=== PATIENT | female | born 1950 | race Caucasian/White ===

== ENCOUNTER 2020-02-25 07:26 | Outpatient (RCR) | payer MEDICARE, MEDICAID, SELFPAY ==
--- NOTE | 2020-02-25 09:43 | PTOPEVAL ---
INITIAL PHYSICAL THERAPY EVALUATION and PLAN OF CARE Thank you for referring Nai Rogers to [facility] Nai is scheduled to be seen for physical therapy? 1x/week for 6 weeks. Please review, sign, date and return this plan of care TATYANA. I agree with and certify that the following plan of care is medically necessary. 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 surgery Cardiovascular History Hx Cardiac Disorders No Significant History Respiratory History Hx Respiratory Disorders No Significant History Gastrointestinal History Hx Cholecystectomy Yes Hx Gastroesophageal Reflux Disease Yes Genitourinary History Hx Other Genitourinary Disorders Yes: incontinence, bladder prolapse Musculoskeletal History Hx Arthritis Yes Hx Back Pain Yes Hx Other Musculoskeletal Disorders Yes: L knee pain Hematological History Hx Anemia Yes Endocrine History Hx Endocrine Disorders No Significant History Reproductive History Hx Tubal Ligation Yes Psychosocial History Hx Anxiety Yes Hx Depression Yes Evaluation Information Problem Diagnosis pelvic floor dysfunction, urinary incontinence, prolapsed bladder Onset May 2019 Subjective Information Fell in bathtub - hit L knee Query Text:As Reported By Patient/ and shoulder - after this Family noticed more with urinary leakage When goes to stand - feels increased amount of urinary leakage - especially when wakes up during night to go to the bathroom. Prior Level of Function Activity Level (Last 3 Months) Hand Dominance Right Medications Home Meds (Include: OTC, RX, Vitamins, omeprazole, Linzess, Vitmain Herbals, Dose, Route,and Frequency) D3, OTC Iron, Women's Multiple Query Text:Home Med Entries Will No Vitamin, Darosate sodium, Longer Recall From Past Visits. Home dolcolate - prn, tumeric, Meds Must Be Re-entered With Each Visit. jefferson, med for bone density Home Setting Home Type
--- NOTE | 2020-03-08 09:33 | PCPTNOTE ---
Pt no show for today's appt. Called Nai to remind her of appointment. Pt stated she had called last week and told table tender sludge, she was out of town and would call us. when she was back in town.
--- NOTE | 2020-03-15 16:16 | PCPTNOTE ---
Patient did not show up for scheduled appointment this date. Previous no show note written stated that pt will call to reschedule when she returns from being out of town. This has not happened. This is her 3rd n/s -she is being removed from the schedule.
--- NOTE | 2020-03-29 16:14 | PCPTNOTE ---
PHYSICAL THERAPY DISCHARGE SUMMARY Admitting Provider: Attending Provider: Adan Oates, PA Patient:Nai Rogers Date of :1950 Nai has not returned for any further treatments since 02/25/2020, therefore she will be discharged at this time. Nai?s initial visit was on 02/25/2020 08:00 and that was the only appointment she attended. The goals have been not met. Thank you for referring Nai to [facility]. Please review, sign, date and return this discharge summary TATYANA. I have been updated about Nai's current status and I agree with discharge from the above service at this time. Referring Physician Date
== END 2020-03-30 10:45 | disposition home or self-care (01) ==
LOC: ANHPT 07:26
PROVIDERS: PCP Physician Assistant; Visit Provider Physician Assistant
DX: N81.89 Other female genital prolapse (principal)
CPT/HCPCS: 97110; 97161

== ENCOUNTER 2022-12-07 11:07 | Outpatient (CLI) | payer MEDICARE, MEDICAID, SELFPAY ==
--- NOTE | ~2022-12-07 | US_ITS ---
EXAMINATION:US venous doppler LE BI INDICATION:Bilateral leg pain TECHNIQUE: Multiple grayscale, color flow and Doppler images of the right and left lower extremity de ep venous systems were obtained and reviewed. COMPARISON: FINDINGS: The common femoral, superficial femoral and popliteal veins demonstrate normal respiratory variation, augmentation and compressibility. The posterior tibial, peroneal and anterior tibial veins are not visualized due to edema. IMPRESSION: 1: No lower extremity deep venous thrombosis in the common femoral, femoral and popliteal veins. Milian ited examination due to edema. Reviewed, dictated and finalized at location B. IMPRESSION: 1: No lower extremity deep venous thrombosis in the common femoral, femoral an d popliteal veins. Limited examination due to edema.
== END 2022-12-07 11:08 | disposition home or self-care (01) ==
PROVIDERS: PCP Family Medicine; Visit Provider Physician Assistant
DX: M79.661 Pain in right lower leg (principal)
CPT/HCPCS: 93970

== ENCOUNTER 2024-12-25 16:56 | Emergency (ER) | payer MEDICARE, MEDICAID, SELFPAY ==
--- NOTE | ~2024-12-25 | CT_ITS ---
CTA chest PE protocol HISTORY:shortness of breath, positive D dimer . COMPARISON: None. TECHNIQUE: Following the noncontrasted assistant office manager, axial images of the thorax were obtained following infusion of 100 cc of Isovue 370. Post-processing on an independent workstation was performed to reconstruct MIP images for evaluation of the thoracic vasculature. FINDINGS: There is no pulmonary embolism, aortic dissection, thoracic aneurysm or pericardial fluid. Mild groundglass opacities scattered bilaterally. No focal consolidation. No pleural effusion or pneumothorax is noted. There is no axillary, mediastinal or hilar adenopathy. Hiatal hernia with herniation of the entire stomach above the diaphragm. Review of bone windows demonstrates no osteoblastic or lytic lesions. IMPRESSION: There is no pulmonary embolism, aortic dissection, pericardial fluid or thoracic aneurysm. Large hiatal hernia. Mild groundglass opacities bilaterally. All CT scans at this facility are performed using low dose modulation techniques as appropriate to perform exam including the following: automated exposure control; use of iterative reconstruction technique; adjustment of the mA and/or kV according to patient size (this includes techniques or standardized protocols for targeted exams where dose is matched to indication/reason for exam). Reviewed, dictated and finalized at location S. E MECHANIC IMPRESSION: There is no pulmonary embolism, aortic dissection, pericardial fluid or thoraci c aneurysm. Large hiatal hernia. Mild groundglass opacities bilaterally. All CT scans at this facility are performed using low dose modulation techniqu es as appropriate to perform exam including the following: automated exposure c ontrol; use of iterative reconstruction technique; adjustment of the mA and/or kV according to patient size (this includes techniques or standardized protocol s for targeted exams where dose is matched to indication/reason for exam).
--- NOTE | ~2024-12-25 | XR_ITS ---
EXAMINATION: XR chest 2V, 12/25/2024 17:50 FAUCETS ASSEMBLER HISTORY: SOB COMPARISON: No comparisons available. Technique: 2 views obtained. Findings: Moderate pulmonary venous congestion. No pneumothorax. Severe cardiomegaly, pericardial effusion is not excluded. Large hiatal hernia. Bony thorax no acute abnormality. Impression: CHF. Pericardial effusion not excluded. Echocardiogram suggested Reviewed, dictated and finalized at location P. ETS ASSEMBLER Impression: CHF. Pericardial effusion not excluded. Echocardiogram suggested
[2024-12-25 16:59] VITALS: BP 137/57; PULSE 87; RESP 18; TEMP 36.6; O2SAT 94
--- NOTE | 2024-12-25 17:04 | ECG_ITS ---
Test Date: 2024-12-25 17:41:10 Measurements Intervals Beatty Rate: 88 P: 75 IL: 188 QRS: -21 QRSD: 86 T: 44 QT: 404 QTc: 490 Interpretive Statements SINUS RHYTHM WITH OCCASIONAL SUPRAVENTRICULAR PREMATURE COMPLEXES LEFTWARD AXIS LOW QRS VOLTAGE IN PRECORDIAL LEADS PATTERN CONSISTENT WITH PULMONARY DISEASE Electronically Signed On 12-26-2024 10:50:51 [employer] by Timmy Gamez D.O
[2024-12-25 17:40] LABS: Hematocrit 35.9 % (37.0-47.0); Hemoglobin 10.1 g/dL (12.0-15.0); Immature Granulocyte Percent A 0.1 % (0-0.5); Lymphocytes Absolute Auto 1.65 K/mm3 (0.9-3.2); Mean Corpuscular HGB Conc 28.1 g/dl (32-36); Mean Corpuscular Hemoglobin 21.9 pg (26-34); Mean Corpuscular Volume 77.7 fl (80-100); Nucleated Red Blood Cells Absolute Auto 0.000 K/mm3 (0.0-0.012); Nucleated Red Blood Cells Perc 0.0 % (0.0-0.2); Platelet Count Result 202 k/mm3 (150-375); Red Blood Count 4.62 M/mm3 (4.2-5.4); White Blood Count 7.3 K/mm3 (4.5-10.0)
[2024-12-25 17:44] LABS: Alanine Aminotransferase 21 U/L (6-35); Albumin Level 4.1 g/dL (3.5-5.1); Alkaline Phosphatase 116 U/L (38-126); Anion Gap 7 mmol/L (4-12); Aspartate Amino Transferase 29 U/L (14-36); Bilirubin,Total 0.5 mg/dL (0.2-1.3); Blood Urea Nitrogen 21 mg/dL (7-17); Calcium 8.7 mg/dL (8.4-10.2); Carbon Dioxide 26 mmol/L (22-30); Chloride 106 mmol/L (98-107); Estimated CRCL calculation 65 ml/min; Estimated Glomerular Filt Rate > 60; Glucose 100 mg/dL (65-110); Potassium 4.0 mmol/L (3.4-5.0); Sodium 139 mmol/L (137-145); Total Protein 7.6 g/dL (6.3-8.2)
[2024-12-25 18:04] LABS: Band Neutrophils Percent 0 % (0-6); Schistocytes None Seen
[2024-12-25 18:05] LABS: Anisocytosis 2+; Hypochromasia 1+
[2024-12-25 18:21] VITALS: BP 129/71; PULSE 85; RESP 20; O2SAT 98
--- NOTE | 2024-12-25 19:12 | ED.GENADULT ---
HPI - General Adult General Chief complaint: Recheck/Abnormal Lab/Rx Stated complaint: elevated DDimer Time Seen by Provider: 12/25/24 18:53 History of Present Illness HPI narrative: This is a 75-year-old female presenting with shortness of breath x1 month. Patient is being worked up by her primary care physician Ken. A D-dimer was ordered on outpatient basis was elevated chest was sent to the ED for further evaluation. Patient says she has been having shortness breath for the last month. She has also noticed some mild lower extremity edema. She denies fevers chills chest pain productive cough, orthopnea. Related Data Home Medications ?Medication ?Instructions ?Recorded ?Confirmed ?Last Taken ?Type ibuprofen 800 mg tablet 800 mg PO Q6H 05/24/22 05/24/22 Unknown History linaclotide 72 mcg capsule 72 mcg PO DAILY 05/24/22 05/24/22 Unknown History (Linzess) magnesium 200 mg tablet 200 mg PO DAILY 05/24/22 05/24/22 Unknown History multivitamin (Daily Multi-Vitamin 1 tablet PO DAILY 05/24/22 05/24/22 Unknown History tablet) omeprazole 40 mg capsule,delayed 40 mg PO .prn 05/24/22 05/24/22 Unknown History release potassium chloride 10 mEq 10 meq PO DAILY 05/24/22 05/24/22 Unknown History tablet,extended release zinc acetate 25 mg (zinc) capsule 25 mg PO DAILY 05/24/22 05/24/22 Unknown History Allergies Allergy/AdvReac Type Severity Reaction Status Date / Time Penicillins Allergy Mild Rash Verified 12/25/24 17:01 quinine Allergy Mild Rash Verified 12/25/24 17:01 [facility] Past Medical History Medical History Epigastric discomfort Gas bloat syndrome Constipation Obesity GERD (gastroesophageal reflux disease) Vitamin D deficiency HLD (hyperlipidemia) Surgical History Surgical History History of tonsillectomy Hx of cholecystectomy Social History Social History Smoking status: Never smoker Exam Narrative: APPEARANCE: No apparent distress. Head: atraumatic. EYES: EOMI, NOSE: Atraumatic NECK: Trachea midline RESPIRATORY: No increased rate of breathing , clear to auscultation, speaking in full sentences CARDIOVASCULAR: RRR, mild edema lower extremities ABDOMINAL: Non-distended MUSCULOSKELETAl: No obvious deformities NEURO: Alert. Moving 4/4 extremities SKIN:: Warm, dry. Normal color PSYCHIATRIC: Normal affect Course Vital Signs Vital signs: Vital Signs Temperature 97.9 F 12/25/24 16:59 Pulse Rate 87 12/25/24 16:59 Respiratory Rate 18 12/25/24 16:59 Blood Pressure 137/57 L 12/25/24 16:59 Pulse Oximetry 94 12/25/24 16:59 Oxygen Delivery Room Air 12/25/24 16:59 Temperature 97.9 F 12/25/24 16:59 Pulse Rate 85 12/25/24 18:21 Respiratory Rate 20 12/25/24 18:21 Blood Pressure 129/71 12/25/24 18:21 Pulse Oximetry 98 12/25/24 18:21 Oxygen Delivery Room Air 12/25/24 16:59 Medical Decision Making MDM Narrative Medical decision making narrative: -Course: 74-year-old female presenting for 1 month shortness of breath due to an elevated D-dimer. CTA was ordered which did not reveal pulmonary embolism. It showed mild ground-glass opacities month as well as a large hiatal hernia. the CT was read as CHF with pulmonary vascular congestion. Patient does not have any respiratory distress on my exam. Her lungs are clear. She is not requiring supplemental oxygen. She is saturating well on room air and is speaking in full sentences. Patient was able to pass an ambulatory pulse ox. she has been scheduled to get an outpatient echocardiogram. I discussed admission versus discharge the patient is adamantly opposed to being admitted. She would like to schedule the echocardiogram on an outpatient basis which I think is reasonable. Patient will be discharged to follow-up with her primary care physician. Given strict return precautions. -DDX includes but is not limited to: CHF, PE, pneumonia, acs, viral syndrome -Co-morbidities complicating care: obesity, GERD -Independent interpretation of studies: labs and imaging reviewed Independent EKG interpretation: Rhythm [sinus], Rate [88], [place] -[normal], [place] -[normal], QRS [narrow], QTC [490], T waves -[negative for concerning inversions], ST Segments - [Negative for concerning elevations] Final interpretations: [Normal Sinus Rhythm] Vital Signs Vital Signs: Vital Signs Temperature 97.9 F 12/25/24 16:59 Pulse Rate 87 12/25/24 16:59 Respiratory Rate 18 12/25/24 16:59 Blood Pressure 137/57 L 12/25/24 16:59 Pulse Oximetry 94 12/25/24 16:59 Oxygen Delivery Room Air 12/25/24 16:59 Temperature 97.9 F 12/25/24 16:59 Pulse Rate 85 12/25/24 18:21 Respiratory Rate 20 12/25/24 18:21 Blood Pressure 129/71 12/25/24 18:21 Pulse Oximetry 98 12/25/24 18:21 Oxygen Delivery Room Air 12/25/24 16:59 Lab Data 12/25/24 17:23 12/25/24 17:23 Labs: Lab Results 12/25/24 Range/Units 17:23 WBC 7.3 (4.5-10.0) K/mm3 RBC 4.62 (4.2-5.4) M/mm3 Hgb 10.1 L (12.0-15.0) g/dL Hct 35.9 L (37.0-47.0) % MCV 77.7 L (80-100) fl MCH 21.9 L (26-34) pg MCHC 28.1 L (32-36) g/dl RDW 19.4 H (11.5-14.5) % Plt Count 202 (150-375) k/mm3 MPV 10.1 (7.4-10.4) fl Immature Gran % (Auto) 0.1 (0-0.5) % Neut % (Auto) 65.4 (45.5-73.1) % Lymph % (Auto) 22.7 (18.3-44.2) % [place] % (Auto) 8.8 H (2.6-8.5) % Eos % (Auto) 2.3 (0-4.4) % Baso % (Auto) 0.7 (0.2-1.2) % Lymph # (Auto) 1.65 (0.9-3.2) K/mm3 [place] # (Auto) 0.6 (0.1-0.6) K/mm3 Eos # (Auto) 0.2 (0-0.3) K/mm3 Baso # (Auto) 0.1 (0.0-0.1) K/mm3 Abs Immat Gran (auto) 0.01 (0.00-0.031) K/mm3 Absolute Neuts (auto) 4.7 (1.3-6.7) K/mm3 Absolute Nucleated RBC 0.000 (0.0-0.012) K/mm3 Band Neutrophils % 0 (0-6) % Nucleated RBC % 0.0 (0.0-0.2) % Platelet Estimate Adequate (Adequate) Hypochromasia 1+ Anisocytosis 2+ Schistocytes None seen Sodium 139 (137-145) mmol/L Potassium 4.0 (3.4-5.0) mmol/L Chloride 106 (98-107) mmol/L Carbon Dioxide 26 (22-30) mmol/L Anion Gap 7 (4-12) mmol/L BUN 21 H (7-17) mg/dL Creatinine 0.80 (0.7-1.0) mg/dL Estim Creat Clear Calc 65 ml/min Estimated GFR > 60 (59 - ) Glucose 100 (65-110) mg/dL Calcium 8.7 (8.4-10.2) mg/dL Total Bilirubin 0.5 (0.2-1.3) mg/dL AST 29 (14-36) U/L ALT 21 (6-35) U/L Alkaline Phosphatase 116 (38-126) U/L Total Protein 7.6 (6.3-8.2) g/dL Albumin 4.1 (3.5-5.1) g/dL Discharge Plan Discharge Clinical Impression: Acute dyspnea Patient Disposition: Home Condition: Stable Instructions: Antibiotic Form, Dyspnea (ED) Additional Instructions: You were seen in the emergency department due to an elevated D-dimer. Your CTA did not show a pulmonary embolism. It is important that she get the echocardiogram that your primary care physician has ordered. If your breathing is getting worse or you develop any new or worsening symptoms please return to the ED for re-evaluation. Patient Language: Lebanese Prescriptions: No Action Linzess 72 mcg capsule 72 mcg PO DAILY ibuprofen 800 mg tablet 800 mg PO Q6H zinc acetate 25 mg (zinc) capsule 25 mg PO DAILY potassium chloride 10 mEq tablet extended release 10 meq PO DAILY magnesium 200 mg tablet 200 mg PO DAILY multivitamin [Daily Multi-Vitamin] Tablet 1 tablet PO DAILY omeprazole 40 mg capsule,delayed release(DR/EC) 40 mg PO .prn Follow-up/Referrals: Roosevelt,Gillian Andrews MD [Primary Care Provider, Unknown] - 3 Days Referral Note: CTA negative for PE.
[2024-12-25 19:26] VITALS: PULSE 103; O2SAT 95
[2024-12-25 20:20] LABS: NT Pro B Type Natriuretic Pept 248 pg/mL (19.9-100)
--- OUTSIDE RECORDS SUMMARY | 2024-12-25 20:20 | XMS_ITS | Encounter Summary ---
Author Organization [facility] Address [address] [place] [address] Care Team Providers Care Joint Maker Machine Name Role Phone Chapo Estevez MD Unavailable [phone] Desmond Osei MD Unavailable [phone] Adan Oates Primary Care Provider + Gillian Albert MD Primary Care Provider [phone] Encounter Details Date Type Department Care Team (Late st Contact Info) Description 10/28/2024 Results Follow-Up [facility] - [employer] [address] [place] [address] Teri Moore MD [address] [facility] [address] [place] [address] Social History Tobacco Use Types Packs/Day Years Used Date Smoking Tobacco: Never Smokeless Tobacco: Never Alcohol Use Standard Drinks/Week Comments Not Currently 0 (1 standard drink = 0.6 oz pur e alcohol) PHQ-2 Answer Date Recorded Patient Health Questionnaire-2 Score 0 10/23/2024 Comments No Sex and Gender Information Value Date Recorded Sex Assigned at Not on file Legal Sex Female 11:21 AM CDT Gender Identity Female 11/26/2016 9:06 AM CDT Sexual Orientation Not on file Occupation Industry Job Start Date Job End Date DISABLED-RETIRED Not on file Not on file Not on file documented as of this encounter Plan of Treatment Upcoming Encounters Date Type Department Care Team (Late st Contact Info) Description 02/22/2025 11:45 AM ITEM PROCESSOR Office Visit [facility] - [employer] [address] [place] [address] Teri Moore MD [address] [place] [address] documented as of this encounter Visit Diagnoses Not on filedocumented in this encounter Care Teams Joint Maker Machine Relationship Specialty Start Date End Date Adan Oates PA [address] [place] [id number] PCP - General Physician Health Advisor 06/29/24 11/25/24 Gillian Albert MD [address] [place] [phone] PCP - General Emergency Medicine 11/26/24 Chapo Estevez MD Referring Physician Neurological Surgery 10/11/14 Desmond Osei MD Radiation Oncologist Radiation Oncology 10/11/14 documented as of this encounter
--- OUTSIDE RECORDS SUMMARY | 2024-12-25 20:20 | XMS_ITS | Clinical Summary ---
Author Organization [facility] Address [address] [facility] [place] [address] Care Team Providers Care Wrapping Machine Tender Name Role Phone Chapo Estevez MD Unavailable [phone] Desmond Osei MD Unavailable [phone] Gillian Albert MD Primary Care Provider [phone] Source Comments [facility],non-owned Affiliates and Associated Physician Practices is amultiple site organization consisting of ambulatory clinics and hospital sitesin [place], [place], [place] and [place]. This disclosure is being madepursuant to the Care Everywhere program and may not contain all information available regarding this patient. Last updated 17.[facility] Allergies Active Allergy Reactions Criticality Noted Date Comments Penicillins Urticaria,Itching 08/19/2013 Quinine Hematologic High 08/19/2013 bleeding Medications * Be aware that medications may not be up to date on this document. Alwaysverify current medications with the patient. Multiple Vitamins-Minera ls (MULTIVITAMIN & MINERAL PO) Take 1 Tab by mouth once daily Active Ferrous Sulfate (IRON) 325 (65 FE) MG Take by mouth once daily Active ibuprofen (MOTRIN) 800 MG tablet Take 800 mg by mouth every 8 hours as needed for Pain Active linaCLOtide (LINZESS) 72 MCG capsule Take 72 mcg by mouth daily before breakfast Take on an empty stomach at least 30 minutes prior to first meal of the day. Active omeprazole (PriLOSEC) 40 MG capsule TAKE 1 CAPSULE BY MOUTH EVERY DAY BEFORE A MEAL Active gabapentin (Neurontin) 300 MG capsule Take 2 (two) capsules by mouth Active cyclobenzaprine (Flexeril) 10 MG tablet Take 1 (one) tablet by mouth 5 Active diclofenac sodium EC (Voltaren) 75 MG tablet Take 1 (one) tablet by mouth 2 times daily 5 Active Linzess 145 MCG capsule Take 1 (one) capsule by mouth once daily Active FLUoxetine (PROzac) 20 MG capsule TAKE 1 CAPSULE BY MOUTH EVERY DAY IN THE MORNING 5 Active Magnesium Oxide 420 MG Take by mouth once daily Active Zinc Gluconate 100 MG Take by mouth once daily Active Multiple Vitamin (Multi-Vitamin) TABS Take by mouth once daily Active alendronate (Fosamax) 70 MG tablet TAKE 1 TABLET BY MOUTH ONCE PER WEEK IN THE MORNING 5 Active HYDROcodone-david taminophen (Transfer) 5-325 MG tablet Take 1 (one) tablet by mouth 2 times daily as needed Active potassium chloride ER 10 MEQ tablet TAKE 1 TABLET BY MOUTH EVERY DAY FOR 10 DAYS Active celecoxib (CeleBREX) 200 MG capsule Take 1 (one) capsule by mouth once daily Active solifenacin (VESIcare) 10 MG tablet Take 1 (one) tablet by mouth once daily Active fluconazole (Diflucan) 150 MG tablet Take 1 (one) tablet by mouth every 3 days 2 tablet Active estradiol (Estrace) 0.1 MG/GM vaginal cream Insert 1g into the vagina nightly for 1 week. Then insert 1g into the vagina two times a week thereafter. 42.5 g 3 5 Active baclofen (Lioresal) 10 MG tablet TAKE 1 TAB BY MOUTH 3 TIMES PER DAY ONLY NEEDED. SEPARATE FROM HYDROCODONE BY AT LEAST 2 HOURS Active predniSONE (Deltasone) 20 MG tablet PLEASE SEE ATTACHED FOR DETAILED DIRECTIONS Active Active Problems Problem Noted Date Diagnosed Date Abnormal EKG 06/22/2024 Daytime hypersomnia 06/22/2024 Shortness of breath 06/22/2024 Encounter for screening for cardiovascular disor ders 06/22/2024 Edema of lower extremity 06/04/2024 Hesitancy 05/25/2024 Microscopic hematuria 05/25/2024 Prolapse of female pelvic organs 05/25/2024 Stress incontinence, female 05/25/2024 Urge incontinence 05/25/2024 Lesion of skin of face 03/08/2024 Stiff neck 03/08/2024 Herniated lumbar intervertebral disc 05/28/2023 Gastroesophageal reflux disease 02/20/2023 Low back pain 02/20/2023 Pain of right hip joint 02/20/2023 Spasm 01/22/2023 Depressive disorder 12/13/2022 Muscle strain of right shoulder 12/13/2022 Bilateral calf pain 10/25/2022 Cellulitis of lower limb 10/19/2022 Osteoporosis 09/14/2022 Arthralgia of right knee 09/04/2022 Morbid obesity 09/04/2022 Osteoarthritis of both knees 09/04/2022 Chronic vertigo 08/23/2022 Other specified personal ris k factors, not elsewhere classified 08/23/2022 Tear of meniscus of knee 08/15/2022 Overview (05/25/2024): Sees Vlad Guajardo , heprescribed physical therapy and Diclofenac tabs po. Intracranial meningioma 07/19/2022 Nausea and vomiting 07/04/2022 Cardiomegaly 06/14/2022 Chronic idiopathic constipation 06/14/2022 Encounter for other screenin g for malignant neoplasm of breast 06/14/2022 Unable to lose weight 06/14/2022 Anemia 07/22/2019 Arthritis 07/22/2019 Neoplasm of brain 07/22/2019 Osteoarthritis of knee 07/22/2019 Urinary incontinence 07/22/2019 At high risk for infection 07/08/2019 Fibromyalgia 07/08/2019 Post-traumatic osteoarthritis of both knees 06/12 Leg edema 07/28/2018 Family history of CVA 07/15/2017 Obesity 07/15/2017 Shoulder pain, left 07/15/2017 Urinary urgency 11/27/2016 Increased frequency of urination 11/27/2016 Myofascial pain 11/27/2016 Uterine prolapse 11/20/2016 Chronic venous hypertension (idiopathic) without complications of bilateral lower extremity 11/01/2015 Iron deficiency anemia 05/19/2015 Benign neoplasm of meninges, unspecified 016 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 Acute embolism and thrombosi s of unspecified deep veins of left lower extremity 07/12/2013 Resolved Problems Problem Noted Date Diagnosed Date Resolved Date Impacted cerumen 11/28/2023 06/08/2024 Sinusitis 11/28/2023 06/22/2024 Encounters Date Type Department Care Team Description 11/26/2024 Telephone [facility] - LABOR SUPERVISOR [address] [place] [address] Teri Moore MD Question 11/10/2024 Telephone [facility] - LABOR SUPERVISOR [address] [place] [address] Teri Moore MD Results 10/28/2024 Results Follow-Up [facility] - LABOR SUPERVISOR [address] [place] [address] Teri Moore MD 10/23/2024 11:45 AM CDT Office Visit [facility] - LABOR SUPERVISOR [address] [place] [address] Teri Moore MD Cystocele, midline (Primary Dx); Uterovaginal prolapse, complete; Rectocele; Morbid obesity with BMI of 50.0-59.9, adult (HCC); Mixed stress and urge urinary incontinence; Vaginal atrophy; Constipation, unspecified constipation type; Vulvar irritation 10/23/2024 Travel from Last 3 Months Family History Medical History Relation Name Comments CAD (Coronary Artery Disease) Father at age 74 COPD - Chronic Obstructive Pulmonary Disease Father Heart Failure Father Cancer - Ovarian Maternal Aunt Depression Mother Parkinson's Disease Mother at age 76 Thyroid Disease Mother Relation Name Status Comments Father Maternal Aunt Alive Mother Social History Tobacco Use Types Packs/Day Years Used Date Smoking Tobacco: Never Smokeless Tobacco: Never Tobacco Cessation:Counseling Given: Not Answered Alcohol Use Standard Drinks/Week Comments Not Currently [...] file Not on file Not on file Last Filed Vital Signs Vital Sign Reading Time Taken Comments Blood Pressure 120/80 10/23/2024 11:25 AM CDT Pulse 77 11/28/2016 10:16 AM CDT Temperature 36.4 C (97.5 F) 10/23/2024 11:25 AM CDT Respiratory Rate 13 11/28/2016 10:1 6 AM CDT Oxygen Saturation 98% 11/28/2016 10: 16 AM CDT Inhaled Oxygen Concentration - - Weight 118.9 kg (262 lb 3.2 oz) 025 11:25 AM CDT Height 152.4 cm (5') 10/23/2024 11:25 AM CDT Body Mass Index 51.21 10/23/2024 11:25 AM CDT Plan of Treatment Upcoming Encounters Date Type Department Care Team (Late st Contact Info) Description 02/22/2025 11:45 AM TOOL DESIGN DRAFTER Office Visit [facility] - LABOR SUPERVISOR [address] [place] [address] Teri Moore MD [address] [place] [address] Health Maintenance Due Date Last Done Comments BONE DENSITY TESTING 1950 COLON MONITORING 1950 COLONOSCOPY - COLON CA SCREENING 1950 CT COLONOGRAPHY - COLON CA SCREENING 1950 FIT - COLON CA SCREENING 1950 FLEX SIG - COLON CA SCREENING 1950 LIPID TESTING 1950 MAMMOGRAM 1950 HEPATITIS C SCREENING 02/01/1968 DTAP/TDAP/TD VACCINES (1 - Tdap) 1969 PNEUMOCOCCAL VACCINE 50+ (1 of 1 - PCV) 02/06/2000 Respiratory Syncytial Virus (RSV) Vaccine Pt: or over 60 yrs (1 - Risk 50-74 years 1-dose series) 02/06/2000 ZOSTER VACCINE (1 of 2) 02/06/2000 MEDICARE AWV CALENDAR YEAR 2024 COVID-19 VACCINE (1 - 2024-2 6 season) 2024 INFLUENZA VACCINE (#1) 2024 COLOGUARD (AGES 45-75) - COL ON CA SCREENING 11/07/2024 11/07/2021 Colorectal Cancer Screening 11/07/2024 DEPRESSION SCREENING Completed 05/25/2024 HEPATITIS B VACCINE Aged Out No longe r eligible based on patient's age to complete this topic HIB VACCINE Aged Out No longer eligi ble based on patient's age to complete this topic HPV VACCINE Aged Out No longer eligi ble based on patient's age to complete this topic MENINGOCOCCAL (Group B) VACC INE SHARED DECISION-MAKING Aged Out No longer eligibl e based on patient's age to complete this topic MENINGOCOCCAL GROUPS A/C/Y/W VACCINE Aged Out No longer eligible b ased on patient's age to complete this topic Procedures Procedure Name Priority Date/Time Associated Diagnosis Comments CULTURE YEAST Routine 10/23/2024 12:57 PM CDT Vulvar irritation from Last 3 Months Results * CULTURE YEAST (10/23/2024 12:57 PM CDT) Culture Yeast with ID [facility] Comment: CULTURE, YEAST, W/IDENTIFICATION Micro Number: [id number] Test Status: Final Specimen Source: Vulva Specimen Quality: Adequate Result: No yeast isolated Test Performed at: [facility] [address] CELY ANDRADE MD Microbiology ENTIRE VULVA / Unknown 10/23/2024 12:57 PM CDT 10/24/2024 2:56 AM CDT us Teri Moore MD LAB - MICROBIOLOGY ORDERABL ES Final Result [address] [address] from Last 3 Months Insurance [facility] MANAGED MEDICARE ADV Care Teams Wrapping Machine Tender Relationship Specialty Start Date End Date Gillian Albert MD [address] [place] [id number] PCP - General Emergency Medicine 11/26/24 Chapo Estevez MD Referring Physician Neurological Surgery 10/11/14 Desmond Osei MD Radiation Oncologist Radiation Oncology 10/11/14
--- OUTSIDE RECORDS SUMMARY | 2024-12-25 20:21 | XMS_ITS | Encounter Summary ---
Author Organization [facility] Address [address] [place] [address] Phone Care Team Providers Care Billboard Poster Name Role Phone Unknown, Notinfgalina Primary Care Provider Unavail able Delia Francis MD Primary Care Provider [phone] Adan Oates Unavailable [phone] Encounter Details Date Type Department Care Team (Latest Contact Info) Description 09/28/2016 Orders Only [facility] CONVERSION Scanning, Provider Social History Tobacco Use Types Packs/Day Years Used Date Smoking Tobacco: Never Assessed Comments Unknown Sex and Gender Information Value Date Recorded Sex Assigned at Not on file Legal Sex Female 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 Gender Identity Not on file Sexual Orientation Not on file documented as of this encounter Plan of Treatment Not on file documented as of this encounter Procedures Procedure Name Priority Date/Time Associated Diagnosis Comments VASCULAR LABORATORY REPORT 09/28/2016 7:28 AM CDT documented in this encounter Results * VASCULAR LABORATORY REPORT (09/28/2016 7:28 AM CDT) Anatomical Region Laterality Modality Ultrasound us Provider Scanning CV VASCULAR PROCEDURES Final R esult documented in this encounter Visit Diagnoses Not on filedocumented in this encounter Care Teams Billboard Poster Relationship Specialty Start Date End Date Unknown, Danny PCP - General 11/27/16 11/28/16 Delia Francis MD [address] [address] PCP - General 11/29/16 Adan Oates PA [address] [place] [address] Physician Clother In Internal Medicine 04/15/19 documented as of this encounter
--- OUTSIDE RECORDS SUMMARY | 2024-12-25 20:21 | XMS_ITS | Clinical Summary ---
Author Organization [id number] Address [address] [place] [address] Care Team Providers Care Deputy Brand Inspector Name Role Phone Delia Francis MD Primary Care Provider Adan Oates Unavailable [phone] Allergies Active Allergy Reactions Criticality Noted Date Comments Penicillins Itching,Urticaria Medium 08/19/2013 Quinine Other (See comments) High 08/19/2013 bleeding Medications Linzess 72 mcg capsule 05/11/2019 Active ergocalciferol (VITAMIN D) 50,000 unit capsule Take 50,000 Units by mouth once a week Active iron 18 mg tablet Take by mouth Active multivitamin tabletIndication s:Vitamin Deficiency Prevention Take 1 tablet by mouth Active Myrbetriq 50 mg tablet extended release 24 hr Take 50 mg by mouth daily 04/24/2020 Active TURMERIC ORAL Take by mouth Active Active Problems Problem Noted Date Diagnosed Date Osteoarthritis of knee 07/22/2019 Neoplasm of brain 07/22/2019 Incontinence 07/22/2019 Arthritis 07/22/2019 Anemia 07/22/2019 Post-traumatic osteoarthritis of both knees 06/12 Fibromyalgia 07/08/2019 At high risk for infection 07/08/2019 Increased frequency of urination 11/27/2016 Urinary urgency 11/27/2016 Myofascial pain 11/27/2016 Uterine prolapse 11/20/2016 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 Surgical History Surgery Date Site/Laterality Comments NE TONSILLECTOMY PRIMARY/SEC ONDARY <AGE 12 Tonsillectomy - (Added by TW Conv) NE UNLISTED PROCEDURE BILIARY TRACT Cholelithotomy - (Added by TW Conv) NE LIG/TRNSXJ FLP TUBE ABDL/ VAG APPR UNI/BI Tubal Ligation - (Added by Conv) Medical History Medical History Date Comments Personal history of other ve nous thrombosis and embolism History of blood clots - (Ad ded by TW Conv) Disease of intestine Bowel troub le - (Added by TW Conv) Personal history of other di seases of the musculoskeletal system and connective tissue History of arthritis - (Adde d by Conv) Personal history of other sp ecified conditions History of brain tumor - (Ad ded by TW Conv) Family History Medical History Relation Name Comments Hypertension Father Family history of hypertension - (Added by Conv) Skin cancer Father Family history of skin cancer - (Added by Conv) Osteoporosis Mother Family history of osteoporosis - (Added by Conv) Relation Name Status Comments Father Mother Social History Tobacco Use Types Packs/Day Years Used Date Smoking Tobacco: Never Alcohol Use Standard Drinks/Week Comments Never 0 (1 standard drink = 0.6 oz pur e alcohol) AUDIT-C Answer Date Recorded Q1: How often do you have a drink containing alc ohol? Never 07/22/2019 Average Number of Drinks Not on file 020 Frequency of Binge Drinking Not on file 07/12 Exercise Vital Sign Answer Date Recorde d On average, how many days pe r week do you engage in moderate to strenuous exercise (like a brisk walk)? 0 days 10/08/2019 On average, how many minutes do you engage in exercise at this level? 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 Gender Identity Not on file Sexual Orientation Not on file Obstetrics History Para Term AB IAB SAB Ectopic Multiple Livin g Live Births 1 Date Outcome GA Total Labor Labor/2nd/3rd Weight Sex Type Anes PTL Jaky A1 A5 Name Clin 1975 Term M Vag-S pont Living Last Filed Vital Signs Vital Sign Reading Time Taken Comments Blood Pressure 140/88 05/31/2020 11:44 AM CDT Pulse 77 11/27/2016 10:41 AM CDT Temperature - - Respiratory Rate - - Oxygen Saturation 97% 11/27/2016 10:41 AM CDT Inhaled Oxygen Concentration - - Weight 104.1 kg (229 lb 8 oz) 05/31/2020 11:44 A M CDT Height 154.9 cm (5' 1) 05/31/2020 11:44 AM CDT Body Mass Index 43.36 05/31/2020 11:44 AM CDT Plan of Treatment Not on file Insurance IDPA [facility] MEDICARE ADVANTAGE [facility] MEDIC[facility] Address: [address] [address] [place] [address] [facility] MDCR HMO REF [facility] MEDICARE Address: [facility] [address] [place] [address] Care Teams Deputy Brand Inspector Relationship Specialty Start Date End Date Delia Francis MD [address] [place] [id number] PCP - General 11/29/16 Adan Oates PA [address] [place] [id number] Physician Carbon Coater Machine Operator Internal Medicine 04/15/19
--- OUTSIDE RECORDS SUMMARY | 2024-12-25 20:21 | XMS_ITS | Clinical Summary ---
Author Organization [facility] Address [address] [place] [address] Care Team Providers Care Linux Engineer Name Role Phone Omero José MD Primary Care Provider Unav ailable Social History Tobacco Use Types Packs/Day Years Used Date Smoking Tobacco: Never Assessed Comments Unknown Sex and Gender Information Value Date Recorded Sex Assigned at Not on file Legal Sex Female 8:18 PM CDT Gender Identity Not on file Sexual Orientation Not on file Last Filed Vital Signs Vital Sign Reading Time Taken Comments Blood Pressure 130/87 03/13/2012 2:35 PM PRIMARY CARE PEDIATRICIAN Pulse 84 03/13/2012 2:35 PM PRIMARY CARE PEDIATRICIAN Temperature - - Respiratory Rate - - Oxygen Saturation - - Inhaled Oxygen Concentration - - Weight 115.7 kg (255 lb) 03/13/2012 2:35 PM PRIMARY CARE PEDIATRICIAN Height 157.5 cm (5' 2) 03/13/2012 2:35 PM PRIMARY CARE PEDIATRICIAN Body Mass Index 46.64 03/13/2012 2:35 PM PRIMARY CARE PEDIATRICIAN Plan of Treatment Health Maintenance Due Date Last Done Comments Colorectal Cancer Screening Colonoscopy (10 Years) 1950 Hepatitis C 02/06/1968 DTaP, Tdap and Td Vaccines ( 1 - Tdap) 1969 Mammogram Screening 1990 Pneumococcal Vaccine: 50+ Ye ars (1 of 1 - PCV) 02/06/2000 Zoster Vaccines (1 of 2) 02/06/2000 Dexa Scan (General) 2015 COVID-19 Vaccine ( - 2024-2 6 season) 2024 Influenza Adult (#1) 2024 RSV Immunization or 60+ Years (1 - 1-dose 75+ series) 2025 Hepatitis A Vaccines Aged Out No long er eligible based on patient's age to complete this topic Meningococcal B Vaccine Aged Out No l onger eligible based on patient's age to complete this topic Meningococcal Vaccine Aged Out No ron nubia eligible based on patient's age to complete this topic RSV Immunizations Under 20 Months Aged Out No longer eligible based on patient's age to complete this topic Care Teams Linux Engineer Relationship Specialty Start Date End Date Omero José MD PCP - General 09/06/11
--- OUTSIDE RECORDS SUMMARY | 2024-12-25 20:39 | XMS_ITS | Data Portability ---
Author Organization [place] [facility], Main Office Address [address] [place] [address] Care Team Providers Care Card Table Attendant Name Role Phone RANDI OATES Primary Care Provider RANDI OATES Referring Provider [phone] Assessment No assessment recorded. Plan of Treatment Reminders Order Date Submit Date Provider Last Modified By Organization Details Last Modified Time Details Appointments None recorded. Lab BNP (B-type natriuretic peptide), serum or plasma 2024 025 [facility], [address] [place] [address], [place], [address], 11:06:08 pro BNP (pro B-type natriuretic peptide), serum or plasma 2024 025 ANDRE[facility], [address] [place] [address], [place], [address], 5 11:06:08 CMP, serum or plasma 2024 025 ATTICA [facility], [address] [place] [address], [place], [address], 11:06:08 CBC w/ auto diff 2024 025 [facility]RE[facility], [address] [place] [address] 2, [place], [address], 5 11:06:08 Referral cardiologis t referral - 74 y/o with cardiomegal y , feet edema . Please eval and treat. Thank you I ordered a BNP. Please call patient to schedule an appointment . 2024 025 [email or web address] [facility] Referral Fax Line, [address], [address], [place], [address], 09:06:10 dermatologi referral - lesions left cheek growing . Please eval and treat. Please call patient to schedule an appointment . Thank you. 2024 025 [email or web address] Tracey Powers MD (Dermatology) , [address], [address], [place], [address], 08:51:30 orthopedic surgeon referral - Please call patient to schedule an appointment . Thank you. 2024 025 [email or web address] [facility], [facility] [place], [address], 09:01:10 Procedures None recorded. Surgeries None recorded. Imaging None recorded. Medication Orders furosemide 40 mg tablet 2024 025 [facility]/Pharmacy #[id number], [address], [place], [address], 5 12:03:18 potassium chloride ER 10 mEq tablet,exte nded release 2024 025 [id number], [address], [place], [address], 5 12:03:18 diclofenac sodium 75 mg tablet,kwabena yed release 2023 024 [facility]/Pharmacy #[id number], [address], [place], [address], 4 13:03:35 ciprofloxac in 500 mg tablet [email or web address]/Pharmacy #[id number], [address], [place], [address], 5 11:28:56 Patient TargetsNo targets recorded. Patient Instructions Encounter Date Encounter Id Patient Instructions Last Modified By Organization Details Last Modified Time 06/04/2024 [id number] elevate feet above heart with heating pad 20 min daily . sleep with head elevated [email or web address] Not available 06/04/2024 12:07:13 Reason for Referral Product Mgr Referral for L esion of skin of face lesions left cheek growing . Please eval and treat. Please call patient to schedule an appointment. Thank you. Referring Physician: Randi Oates [facility], Encounter Date: 03/09/2024 Orthopedic Surgeon Referral for Stiff neck Please call patient to schedule an appointment. Thank you. Referring Physician: Randi Oaets [facility], Encounter Date: 03/09/2024 Rough Carpenter Referral for Ca rdiomegaly 74 y/o with cardiomegaly , feet edema . Please eval and treat. Thank you I ordered a BNP. Please call patient to schedule an appointment. Referring Physician: Randi Oates [facility], Encounter Date: 06/04/2024 Results Created Date Observation Date Name Description Value Unit Range Abnormal Flag Note LastModifiedBy Organization Detail LastModifiedTime 06/27/19 25 06/24/2024 exerc ise patt s echoc ardio gram No observ ation record ed. [email or web address] [facility] [address], [place], [address], 09/24/2024 17:12:39 Result Notes None recorded. Problems Name Problem SNOMED Code Status Onset Date Resolution Date Notes Provider Name and Address Organization Details Recorded Time Neoplasm of brain 782583696 Active Not Available [facility] 4 01:33:48 Osteoarth ritis of knee 766875093 Active Not Available [facility] 4 01:33:48 Anemia 453782019 Active Not Available [facility] 4 01:33:49 Arthritis 9702230 Active Not Available [facility] 4 01:33:49 Incontine nce 55677528 Active Not Available [facility] 4 01:33:49 Cardiomeg endy 9265245 Active 2022 Not Available [facility] 4 01:33:49 Chronic idiopathi c constipat ion 59555723 Active 2022 Not Available [facility] 4 01:33:49 Failure to lose weight 97361699 Active 2022 Not Available [facility] 4 01:33:49 Screening for malignant neoplasm of breast Active 2022 Not Available [facility] 4 01:33:48 Urinary incontine nce 617556349 Active 2022 Not Available [facility] 4 01:33:48 Nausea and vomiting 44820824 Active 2022 Not Available [facility] 4 01:33:48 Intracran ial meningiom a 619273246 Active 2022 Not Available [facility] 4 01:33:49 Tear of meniscus of knee 460665574 Active 2022 [facility] and Diclofena c tabs po. Not Available [facility] 4 01:33:48 Chronic vertigo 10649938976 105 Active 2022 Not Available [facility] 4 01:33:48 Adult health examinati on Active 2022 Not Available [facility] 4 01:33:49 At increased risk of nutrition al deficit 827938667 Active 2022 Not Available [facility] 4 01:33:49 Pain of right knee joint 63106681281 4100 Active 2022 Not Available [facility] 4 01:33:49 Bilateral osteoarth ritis of knees 32489459281 9107 Active 2022 Not Available [facility] 4 01:33:48 Morbid obesity 065974545 Active 2022 Not Available [facility] 4 01:33:48 Osteoporo sis 73616736 Active 2022 Not Available [facility] 4 01:33:49 Celluliti s of lower limb 857153212 Active 2022 Not Available [facility] 4 01:33:49 Bilateral calf pain 23026326657 667994 Active 2022 Not Available [facility] 4 01:33:48 Fibromyal vinh 446795392 Active 2022 Not Available [facility] 4 01:33:48 Depressiv e disorder 18122159 Active 2022 Not Available [facility] 4 01:33:49 Strain of muscle of right shoulder 38004171679 236022 Active 2022 Not Available [facility] 4 01:33:48 Spasm 41442702 Active 2022 Not Available [facility] 4 01:33:49 Gastroeso phageal reflux disease 962465867 Active 2023 Not Available [facility] 4 01:33:48 Pain of right hip joint 42668237865 9102 Active 2023 Not Available [facility] 4 01:33:49 Low back pain 494847559 Active 2023 Not Available [facility] 4 01:33:49 Prolapsed lumbar intervert ebral disc 324296493 Active 2023 AIMEE Peterson [address], [address], [place], [address] , [employer] 4 11:50:16 Sinusitis 70190704 Active 2023 AIMEE Peterson [address], [address], [place], [address] , [employer] 4 12:10:49 Impacted cerumen 36047726 Active 2023 AIMEE Peterson [address], [address], [place], [address] , [employer] [facility] 4 12:12:06 Lesion of skin of face 47252793910 6 Active 2024 AIMEE Peterson [address], [address], [place], [address] , [employer] 5 12:11:11 Stiff neck 597362029 Active 2024 AIMEE Peterson [address] [facility], [facility] [address], [place], [address] , [facility] 5 12:13:27 Edema of lower extremity 668447687 Active 2024 AIMEE Peterson [address] [facility], [facility] [address], [place], [address] , [facility] 5 11:54:34 Notes:Some problems listed i n Documents: #[id number], #[id number], #[id number], #[id number], #[id number], #[id number] could not be added to this patient's chart. Please review these documents and add these problems to the patient's chart manually as needed. Problem Notes None recorded. Procedures Surgical History Date Name Laterality Status Provider Name and Address Organization Details Recorded Time Tonsillectomy completed Bonnie Corey [facility] [employer] [facility] 06/14/2022 10:25:55 Tubal Ligation completed Bonnie Corey [facility] [employer] [facility] 06/14/2022 10:26:02 Cholecystectomy completed Bonnie Corey [employer] [facility] [employer] [facility] 06/14/2022 10:26:12 Imaging Results None recorded. Procedure Notes None recorded. Medical Equipment None Reported. Allergies Allergen ID Allergen Name Allergen Category Reaction Reaction Severity Criticality Documentation Date Start Date Code Code System Note Provider Name and Address Organization Details Recorded Time 91540 quinine Not available Not available Not available Not available 04/11/2022 9071 RxNorm bleed ing Not Available [facility] 08:53:43 51649 penicilli n G Not available Not available Not available Not available 04/11/2022 7980 RxNorm rash Not Available [facility] 08:53:43 56372 Ozempic medicatio n Not available Not available Not available 07/19/2022 07 RxNorm FELI Monsivais [facility] [employer] [facility] 3 14:38:14 Medications Name Sig Start Date Stop Date Status Note LastModified by Organization Details LastModified Time celecoxib 200 mg capsule TAKE 1 CAPSULE BY MOUTH EVERY DAY 2023 active Not Available Not Available Not [facility] cyclobenzap rine 10 mg tablet TAKE 1 TABLET BY MOUTH EVERYDAY AT BEDTIME active Not Available Not Available No t Available furosemide 40 mg tablet TAKE 1 TABLET BY MOUTH EVERY DAY FOR 10 DAYS active Not Available Not Available No t Available diclofenac 3 % topical gel APPLY TO LESION AREAS 2 TIMES PER DAY 09/05 completed Not Available Not Available Not Available venlafaxine ER 37.5 mg capsule,ext ended release 24 hr TAKE 1 CAPSULE BY MOUTH EVERY DAY IN THE EVENING FOR 7 DAYS. 01/10 completed Not Available Not Available Not Available venlafaxine ER 75 mg capsule,ext ended release 24 hr Take 1 capsule every day by oral route in the evening for 30 days. 01/10 completed Not Available Not Available Not Available azithromyci n 250 mg tablet TAKE 2 TABLETS BY MOUTH TODAY, THEN TAKE 1 TABLET DAILY FOR 4 DAYS AFTER A MEAL 06/14 completed Not Available Not Available Not Available ibuprofen 800 mg tablet TAKE 1 TABLET BY MOUTH THREE TIMES A DAY 04/16 completed Not Available Not Available Not Available fluconazole 150 mg tablet TAKE 1 TABLET BY MOUTH EVERY 3 DAYS active Not Available Not Available No t Available hydrocodone 5 mg-acetamin ophen 325 mg tablet TAKE 1 TABLET BY MOUTH TWICE A DAY NEEDED active Not Available Not Available No t Available prednisone 20 mg tablet 06/14 completed Not Available Not Available Not Available alendronate 70 mg tablet TAKE 1 TABLET BY MOUTH ONCE PER WEEK IN THE MORNING active Not Available Not Available No t Available sertraline 100 mg tablet Take 1 tablet every day by oral route in the morning for 30 days. 03/28 completed Not Available Not Available Not Available Debrox 6.5 % ear drops INSTILL 10 DROPS INTO AFFECTED EAR(S) BY OTIC ROUTE 1 TIME PER DAY. and drain after 30 min , do for 7 days 04/16 completed Not Available Not Available Not Available venlafaxine ER 150 mg capsule,ext ended release 24 hr TAKE 1 CAPSULE BY MOUTH EVERY DAY IN THE EVENING FOR 30 DAYS *START AFTER FINISHING 75 MG CAPS* 10/22 completed Not Available Not Available Not Available meclizine 12.5 mg tablet TAKE 1 TABLET BY MOUTH THREE TIMES A DAY NEEDED 06/04 completed Not Available Not Available Not Available potassium chloride ER 10 mEq tablet,exte nded release TAKE 1 TABLET BY MOUTH EVERY DAY FOR 10 DAYS active Not Available Not Available No t Available lidocaine HCl 2 % mucosal jelly Take 200 mg by mucous route. 06/14 completed Not Available Not Available Not Available ciprofloxac in 500 mg tablet Take 1 tablet every 12 hours by oral route for 10 days. 06/04 completed Not Available Not Available Not Available sulfamethox azole 800 mg-trimetho prim 160 mg tablet TAKE 1 TABLET BY MOUTH TWICE A DAY FOR 7 DAYS active Not Available Not Available No t Available omeprazole 40 mg capsule,del ayed release TAKE 1 CAPSULE BY MOUTH EVERY DAY BEFORE A MEAL active Not Available Not Available No t Available ropinirole 0.25 mg tablet PLEASE SEE ATTACHED FOR DETAILED DIRECTION S 06/14 completed Not Available Not Available Not Available benzonatate 100 mg capsule TAKE 1 CAPSULE BY MOUTH THREE TIMES A DAY NEEDED FOR 10 DAYS 06/14 completed Not Available Not Available Not Available ferrous sulfate 325 mg (65 mg iron) tablet TK 1 T PO TID 06/14 completed Not Available Not Available Not Available triamcinolo ne acetonide 0.1 % topical ointment 06/14 completed Not Available Not Available Not Available nystatin 100,000 unit/gram topical cream 06/14 completed Not Available Not Available Not Available diphenhydra mine 25 mg tablet 06/14 completed Not Available Not Available Not Available warfarin 5 mg tablet TK 1 T PO QD active Not Available Not Available No t Available fluoxetine 10 mg capsule TAKE 1 CAPSULE EVERY DAY BY ORAL ROUTE IN THE MORNING FOR 7 DAYS. 12/05 completed Not Available Not Available Not Available mupirocin calcium 2 % topical cream 06/14 completed Not Available Not Available Not Available oxybutynin chloride ER 5 mg tablet,exte nded release 24 hr 1 tablet once a day 06/14 completed Not Available Not Available Not Available gabapentin 300 mg capsule TAKE 2 CAPSULES BY MOUTH 3 TIMES A DAY active Not Available Not Available No t Available diclofenac sodium 75 mg tablet,kwabena yed release TAKE 1 TABLET BY MOUTH TWICE A DAY active Not Available Not Available No t Available Levaquin 500 mg tablet Take 1 tablet every day by oral route for 7 days. 06/14 completed Not Available Not Available Not Available ergocalcife rol (vitamin D2) 1,250 mcg (50,000 unit) capsule TAKE 1 CAPSULE BY MOUTH ONE TIME EVERY TWO WEEKS WITH FOOD 06/14 completed Not Available Not Available Not Available Cystografin 30 % urethral solution Take 300 mL by urethral route. 06/14 completed Not Available Not Available Not Available estradiol 0.01% (0.1 mg/gram) vaginal cream INSERT 1G INTO THE VAGINA NIGHTLY FOR 1 WEEK. THEN INSERT 1G INTO THE VAGINA TWO TIMES A WEEK AFTER active Not Available Not Available No t Available ondansetron 4 mg disintegrat ing tablet PLACE 1 TABLET 3 TIMES A DAY BY TRANSLING UAL ROUTE NEEDED FOR 30 DAYS. 03/28 completed Not Available Not Available Not Available fluoxetine 20 mg capsule TAKE 1 CAPSULE BY MOUTH EVERY DAY IN THE MORNING active Not Available Not Available No t Available clotrimazol e 1 % topical cream 06/14 completed Not Available Not Available Not Available sertraline 50 mg tablet Take 1 tablet every day by oral route in the morning for 7 days. 03/28 completed Not Available Not Available Not Available nitrofurant oin monohydrate /macrocryst als 100 mg capsule Take 1 capsule twice a day by oral route with meals for 14 days. 06/14 completed Not Available Not Available Not Available diazepam 5 mg-7.5 mg-10 mg rectal kit Insert 10 mg by rectal route. 06/14 completed Not Available Not Available Not Available magnesium active Not Available Not Marilee ilable Not Available zinc active Not Available Not Availa ble Not Available niacin active Not Available Not Availa ble Not Available iron active Not Available Not Availa ble Not Available potassium active Not Available Not Marilee ilable Not Available multivitami n active Not Available Not Available Not Available Voltaren 1 % topical gel active Not Available Not Available Not Available Myrbetriq 25 mg tablet,exte nded release 06/14 completed Not Available Not Available Not Available Myrbetriq 50 mg tablet,exte nded release TAKE 1 TABLET BY MOUTH EVERY DAY 04/16 completed Not Available Not Available Not Available Linzess 145 mcg capsule TAKE 1 CAPSULE BY MOUTH EVERY DAY active Not Available Not Available No t Available Linzess 72 mcg capsule TAKE 1 CAPSULE BY MOUTH EVERY DAY 06/14 completed Not Available Not Available Not Available Ozempic 0.25 mg or 0.5 mg (2 mg/1.5 mL) subcutaneou s pen injector INJECT 0.25 MG UNDER THE SKIN EVERY WEEK DIRECTED FOR 30 DAYS. 06/14 completed Not Available Not Available Not Available Wegovy 0.25 mg/0.5 mL subcutaneou s pen injector INJECT 0.25 MG EVERY WEEK BY SUBCUTANE OUS ROUTE. 04/16 completed Not Available Not Available Not Available Ozempic 2 mg/dose (8 mg/3 mL) subcutaneou s pen injector INJECT 2 MG SUBCUTANE OUSLY ONE TIME PER WEEK 07/19 completed Not Available Not Available Not Available Vitals Date Recorded Body height Body mass index (BMI) Body weight Body temperature Heart rate Oxygen saturation Oxygen saturation in Arterial blood by Pulse oximetry Systolic And Diastolic Provider Name and Address Organization Details Last Updated DateTime 5 154.94 cm 50.4 kg/m2 806257. 73 g 98.4 [degF] 102 /min 96 % 96 % 148/86 mm[Hg] Lesvia Frazier CMA [employer] [facility] 5 12:01:49 Date Recorded Body height Body mass index (BMI) Body weight Heart rate Oxygen saturation Oxygen saturation in Arterial blood by Pulse oximetry Body temperature Systolic And Diastolic Provider Name and Address Organization Details Last Updated DateTime 5 154.94 cm 50.3 kg/m2 393906. 57 g 95 /min 98 % 98 % 97.8 [degF] 138/86 mm[Hg] Jacquelyn ríos [facility] 5 10:36:49 Date Recorded Body height Body temperature Body mass index (BMI) Body weight Oxygen saturation Oxygen saturation in Arterial blood by Pulse oximetry Heart rate Systolic And Diastolic Provider Name and Address Organization Details Last Updated DateTime 5 154.94 cm 98.8 [degF] 50.3 kg/m2 947830. 57 g 93 % 93 % 82 /min 138/72 mm[Hg] Crista Doherty Power [facility] [employer] [facility] 5 11:32:44 Date Recorded Body height Provider Name an d Address Organization Details Last Updated DateTime 06/16/2024 154.94 cm AIMEE Peterson [address], [facility] [address], [place], [address], [facility] [employer] [facility] 06/21/2024 09:41:43 Date Recorded Body height Body mass index (BMI) Body weight Body temperature Heart rate Oxygen saturation Oxygen saturation in Arterial blood by Pulse oximetry Systolic And Diastolic Provider Name and Address Organization Details Last Updated DateTime 154.94 cm 49.9 kg/m2 753071. 39 g 98.2 [degF] 83 /min 97 % 97 % 122/70 mm[Hg] Zolia Villanueva RN [facility] [employer] [facility] 12:49:15 Social History Question Answer Notes LastModified by [employer] Details LastModified Time Tobacco Smoking Status Never Smoker LIBBY Tony null, [facility] [employer] [facility] 06/14/2022 10:25:47 What Is Your Level Of Caffeine Consumption? Moderate [email or web address] Information not available 07/19/2022 Do You Use Your Seat Belt Or Car Seat Routinely? Yes [email or web address] Information not available 09/05/2022 Do You Participate In Social Media? Yes [email or web address] Information not available 09/05/2022 Sex: Unknown Functional Status Question Answer Note LastModified by Organizat [employer] Details LastModified Time Do you use any illicit or recreational drugs? No [email or web address] Information not available 07/19/2022 What is your level of alcohol consumption? None [email or web address] Information not available 07/19/2022 Mental Status Question Answer Note LastModified by Organization D etails LastModified Time Do you feel stressed (tense, restless, nervous, or anxious, or unable to sleep at night)? [id number] [email or web address] Information not available 09/05/2022 Family History Relationship Description Onset Age of this Age Resolved Age Notes LastModified by Organization Details LastModified Time Mother Family history of stroke [email or web address] Not available 2022 10:24:34 Mother Parkinson's disease [email or web address] Not available 2022 10:24:53 Father Chronic obstructive pulmonary disease [email or web address] Not available 2022 10:24:59 Father Congestive heart failure [email or web address] Not available 2022 10:25:06 Medical History Condition Response BLINDNESS N RHEUMATIC FEVER N KIDNEY STONES N BLADDER PROBLEMS N MRSA N OTHER # 1 N POLIO N LUNG DISEASE/DISORDER N HISTORY OF DRUG ABUSE N RADIATION / CHEMOTHERAPY N COPD N Other # 2 N BLOOD DISEASES N SURGERY N EAR OR HEARING PROBLEMS N MUMPS N SHINGLES N BOWEL PROBLEMS N FEMALE PROBLEMS / INFECTIONS N DEPRESSION (INCLUDING POST ) N FAILED BACK SYNDROME N STROKE/TIA N THYROID DISEASE N ULCERS N BENIGN PROSTATIC HYPERPLASIA N MEASLES N CERVICALGIA N HYPOTENSION N TB SKIN TEST N MYOCARDIAL INFARCTION N PARAPELGIA N OBESITY N GERD/NAUSEA N ANEURYSM N URINARY/BLADDER/KIDNEY PROBLEMS Y CORONARY ARTERY DISEASE (CAD) N MENIERE'S DISEASE N Do you have Advance directive? N ADDICTION CONCERNS N ENDOMETRIOSIS N USE OF BLOOD THINNERS N SKIN PROBLEMS N EMPHYSEMA N GASTROINTESTINAL DISORDER N PERIPHERAL ARTERY DISEASE N MUSCLE,JOINT OR BONE PROBLEMS N GASTROINTESTINAL BLEEDING N BLOOD CLOTS Y ASTHMA N Abdominal Pain N CATARACTS N ARTERIAL INSUFFICIENCY N ERECTILE DYSFUNCTION N GI PROBLEMS N CHF N Low Testosterone N NEUROPATHY N INFERTILITY N AIDS/HIV N FRACTURES N CHEMOTHERAPY / RADIATION N VISION/EYE PROBLEMS N LIVER DISEASE N HYPERTENSION N TOURETTE'S N ANXIETY DISORDER N BLOOD TRANSFUSION N ANEMIA/BLOOD DISORDER Y CHRONIC EAR INFECTIONS N BRONCHITIS N TUBERCULOSIS N GLAUCOMA N FOOT PROBLEM N DIVERTICULITIS N CHICKENPOX N SLEEP APNEA N BACK INJECTIONS N ALLERGIES/HAYFEVER N INFECTIOUS DISEASE N HEART ARRHYTHMIA N PROSTATE N ESRD N INSOMNIA N HIGH CHOLESTEROL / HYPERLIPIDEMIA N HYPERTHYROIDISM N EYE PROBLEMS N PVD N EATING DISORDER N EDEMA N CHRONIC PAIN SYNDROME N CAROTID BLOCKAGE N CONSTIPATION N BACK / NECK PROBLEMS N HAVE YOU BEEN HOSPITALIZED OR SEEN IN [facility] IN THE PAST YEAR ? N ATHEROSCLEROSIS N BREAST PROBLEMS N DIALYSIS N POLYCYSTIC OVARIES N ECZEMA N FIBROMYALGIA N OSTEOPOROSIS N ARTHRITIS Y NO SIGNIFICANT PAST MEDICAL HISTORY N APPENDICITIS N DIABETES, TYPE N BAD TEETH N VON WILLIBRAND'S DISEASE N HEARTBURN / REFLUX N ADD/ADHD N AUTISM SPECTRUM DISORDER (ASD) N POST LAMINECTOMY SYNDROME N HEPATITIS / LIVER DISEASE N PULMONARY DISEASE N GOUT N SLEEP DISORDER N ALZHEIMER'S DISEASE N PAIN N HERPES N DEMENTIA N HEADACHES/MIGRAINES N SEIZURES/EPILEPSY N VASCULAR DISEASE N PACEMAKER N DIZZINESS N HEART DISEASE/HEART PROBLEMS N KIDNEY DISEASE N DEVELOPMENTAL OR BEHAVIORAL DISORDERS N MULTIPLE SCLEROSIS N SCARLET FEVER N MENTAL DISORDER/ILLNESS N NEUROPSYCHOLOGICAL N CARDIAC ARRHYTHMIA N CANCER: SPECIFY N PNEUMONIA N ATRIAL FIBRILLATION N Gall Stones N PULMONARY EMBOLISM N AUTOIMMUNE DISEASE N Gynecological HistoryNo gynecological history recorded. Obstetrics History GPAL:G 1 P 1 0 0 1 Type Value Full Term 1 Living 1 Total 1 Past Encounters Encounter ID Performer Location Encounter Start Date Encounter Closed Date Diagnosis/Indication Diagnosis SNOMED-CT Code Diagnosis ICD10 Code Diagnosis IMO Codes Diagnosis Note [id number] [facility] Podiatry Rafael Pineda [address] [place] [address] 12/19/2020 00:00:00 12/19/2020 11:34:14 [id number] Sandeep Rosa MD [address] [place] [address] 06/14/2022 10:00:04 06/14/2022 11:00:06 Incontinence 55976771 R32 Chronic id iopathic constipation 82777663 K59.04 Failure to lose weight 34741011 R63.8 Screening for malignant neoplasm of breast 771729191 Z12.39 Osteoarthr itis of knee 826936207 M17.9 [id number] Pedrito Valentin MD [facility] Urology [address] [address] 06/21/2022 10:31:10 06/21/2022 11:27:36 Urinary incontinence 366973767 R32 The patient is complainin g of urinary incontinen ce. Complicati ng factor is POP and she has a retained pessary. She will need to see gynecology for that. Will schedule for cystoscopy and UDS. Will need the pessary removed to evaluate POP. [id number] Sandeep Rosa MD [place] [facility] Kelly oliveira [address] [place] [address] [place] [address] 07/19/2022 14:22:19 07/19/2022 15:05:39 Intracranial meningioma [id number] D32.0 [id number] Sandeep Rosa MD [address] [place] [address] 08/23/2022 11:54:26 08/23/2022 12:36:10 Arthritis 2225084 M19.90 Chronic id iopathic constipation 53461636 K59.04 Osteoarthr itis of knee 659989882 M17.9 Tear of me niscus of knee 745469134 S83.206D Chronic vertigo 57641227 11 9105 R42 Adult heal th examination 476572723 Z00.00 At [facility] risk of nutritional deficit 651383977 Z91.89 [id number] Vlad Oates MD [facility] [address] [facility], [address] [address] 09/04/2022 09:20:45 09/04/2022 10:37:38 Pain of right knee joint 6509288540 11053 M25.561 Bilateral osteoarthritis of knees 3790612452 97203 M17.0 Morbid obesity 912963951 E66.01 [id number] Sandeep Rosa MD [facility] Kelly cohene [address] [place] [address] 09/05/2022 10:59:02 09/05/2022 11:48:38 Anemia 144908255 D64.9 Arthritis 9389473 M19.90 Bilateral osteoarthritis of knees 5340914878 42086 M17.0 Cardiomegaly 8305187 I51 .7 Chronic id iopathic constipation 62810909 K59.04 Tear of me niscus of knee 679977372 S83.206D [id number] Sandeep Rosa MD [facility] Kelly lle [address] [place] [address] 10/19/2022 09:19:43 10/19/2022 10:14:35 Cellulitis of lower limb 337588180 L03.119 Anemia 658272768 D64.9 Arthritis 9284250 M19.90 Cardiomegaly 0207800 I51 .7 Chronic id iopathic constipation 35163689 K59.04 Chronic vertigo 86816362 11 9105 R42 Intracrani al meningioma 866331270 D32.0 Tear of me niscus of knee 186729826 S83.206D Urinary incontinence 165 410673 R32 [id number] Sandeep Rosa MD [facility] Kelly oliveira [address] [place] [address] [place] [address] 12/13/2022 09:49:21 12/13/2022 10:41:44 Fibromyalgia 438723146 M79.7 Depressive disorder 3548 9007 F32.A Urinary incontinence 165 966722 R32 Tear of me niscus of knee 377156575 S83.206D Strain of muscle of right shoulder 6333397990 8345752 S46.911A [id number] Sandeep Rosa MD [facility] Kelly oliveira [address] [place] [address] [place] [address] 01/10/2023 09:34:58 01/10/2023 10:19:56 Depressive disorder 20807448 F32.A Strain of muscle of right shoulder 9086569540 9214334 S46.911A [id number] Sandeep Rosa MD [facility] Kelly oliveira [facility] [place] [address] 02/21/2023 10:15:35 02/21/2023 11:26:46 Spasm 27354661 R25.2 thigh Gastroesop hageal reflux disease 004841949 K21.9 Pain of mu ltiple joints 05741863 M25.50 Urinary incontinence 165 767611 R32 Depressive disorder 3548 9007 F32.A Pain of ri ght hip joint 4479574965 13156 M25.551 Low back pain 483865228 M54.50 [id number] Sandeep Rosa MD [facility] Kelly oliveira [facility] [place] [address] 03/28/2023 11:04:54 03/28/2023 11:36:04 Low back pain 433177373 M54.50 Anemia 387726079 D64.9 Arthritis 3770310 M19.90 Bilateral osteoarthritis of knees 1735361517 40233 M17.0 Chronic id iopathic constipation 89109938 K59.04 Depressive disorder 3548 9007 F32.A Fibromyalgia 901648784 M 79.7 Gastroesop hageal reflux disease 909311379 K21.9 Intracrani al meningioma 482919055 D32.0 Morbid obesity 704518407 E66.01 Osteoporosis 02567855 M8 1.0 Tear of me niscus of knee 018320036 S83.206D Urinary incontinence 165 734669 R32 [id number] Kyle Maya MD [address] [place] [address] 05/28/2023 10:59:39 05/28/2023 11:58:52 Prolapsed lumbar intervertebral disc 062017108 M51.26 Low back pain 475494433 M54.50 Anemia 956973093 D64.9 Arthritis 7167855 M19.90 Bilateral osteoarthritis of knees 6886376802 32839 M17.0 Chronic id iopathic constipation 35139221 K59.04 Depressive disorder 3548 9007 F32.A Fibromyalgia 858609044 M 79.7 Gastroesop hageal reflux disease 452292246 K21.9 Incontinence 34954370 R3 2 Intracrani al meningioma 047408806 D32.0 Tear of me niscus of knee 325034674 S83.206D Osteoporosis 39082126 M8 1.0 [id number] Kyle Maya MD [address] [place] [address] 07/23/2023 11:03:01 07/23/2023 11:37:13 Strain of muscle of right shoulder 7238016070 5654435 S46.911A Spasm 42156820 R25.2 thigh Anemia 670342941 D64.9 Bilateral osteoarthritis of knees 3125756861 65722 M17.0 Depressive disorder 3548 9007 F32.A Failure to lose weight 43624270 R63.8 Gastroesop hageal reflux disease 337333908 K21.9 Fibromyalgia 870985742 M 79.7 Incontinence 54582436 R3 2 Intracrani al meningioma 950555238 D32.0 Morbid obesity 049668825 E66.01 Osteoarthr itis of knee 648046083 M17.9 Osteoporosis 04193241 M8 1.0 Pain of ri ght hip joint 2950366079 91580 M25.551 Pain of ri ght knee joint 4034660414 95337 M25.561 Prolapsed lumbar intervertebral disc 705356099 M51.26 Tear of me niscus of knee 489876016 S83.206D [id number] Kyle Maya MD [address] [place] [address] 11/28/2023 11:35:58 11/28/2023 12:21:37 Sinusitis 94367785 J32.9 Urinary incontinence 165 532831 R32 pessary placed 4 years ago . Depressive disorder 3544 9007 F32.A Impacted cerumen 5386242 6 H61.21 Morbid obesity 654145072 E66.01 Low back pain 996647206 M54.50 [id number] Kyle Maya MD [address] [place] [address] 12/06/2023 12:31:56 12/06/2023 13:07:22 Sinusitis 78613112 J32.9 Bilateral osteoarthritis of knees 0538175708 53515 M17.0 [id number] Kyle Maya MD [address] [address] 03/09/2024 11:49:38 03/09/2024 12:19:21 Lesion of skin of face 4543552177 06 L98.9 left cheek Urinary incontinence 165 031372 R32 pessary placed 4 years ago . removed Saturday the , worried uterus prolapsed now . Stiff neck 299900929 M43 .6 Anemia 331567815 D64.9 Arthritis 6995516 M19.90 Bilateral osteoarthritis of knees 6321444049 74266 M17.0 Cardiomegaly 3762591 I51 .7 Chronic id iopathic constipation 67834747 K59.04 Depressive disorder 3548 9007 F32.A Fibromyalgia 954376585 M 79.7 Gastroesop hageal reflux disease 952667576 K21.9 Osteoporosis 81755358 M8 1.0 [id number] Kyle Maya MD [address] [address] 04/16/2024 10:25:39 04/16/2024 12:38:17 Anemia 168167996 D64.9 Arthritis 0388460 M19.90 Bilateral osteoarthritis of knees 3612705257 21086 M17.0 Cardiomegaly 7665020 I51 .7 Chronic id iopathic constipation 80375911 K59.04 Depressive disorder 3548 9007 F32.A Fibromyalgia 797216171 M 79.7 Gastroesop hageal reflux disease 260363128 K21.9 Intracrani al meningioma 927410424 D32.0 Low back pain 489971625 M54.50 Osteoarthr itis of knee 642118475 M17.9 Osteoporosis 57119463 M8 1.0 Prolapsed lumbar intervertebral disc 255499961 M51.26 Tear of me niscus of knee 698959442 S83.206D [id number] Kyle Maya MD [address] [address] 06/04/2024 11:10:53 06/04/2024 12:11:06 Cardiomegaly 6809266 I51.7 Edema of l ower extremity 617224406 R60.0 Anemia 982251138 D64.9 Depressive disorder 3548 9007 F32.A Fibromyalgia 010672576 M 79.7 Gastroesop hageal reflux disease 694950975 K21.9 Intracrani al meningioma 245606512 D32.0 Low back pain 977178053 M54.50 Prolapsed lumbar intervertebral disc 876749793 M51.26 Tear of me niscus of knee 937238085 S83.206D [id number] Kyle Maya MD [address] [address] 06/16/2024 10:37:36 06/21/2024 09:48:16 Health Concerns Section Related Observation LastModified by Organization Detai ls LastModified Time None Recorded Concern Status LastModified by Organization Details LastModified Time None Recorded Advance Directives Directive None Recorded Payers Insurance Date Sequence Insurance Name Policy Number Policy Sainz Covered Member ID Sainz Member ID Guarantor Name 03/09/2024 1 [facility] MEDIC[facility] SOLUT[facility] - MEDICARE COMPLETE (MEDICARE REPLACEMENT HMO) [id number] Nai Rogers [id number] Nai Rogers 03/09/2024 1 [place] Nai Rogers [id number] Nai Rogers 03/09/2024 2 [place] Nai Rogers [id number] Nai Rogers 07/14/2024 1 [facility] (MEDICARE REPLACEMENT/AD VANTAGE - PPO) [id number] Nai Rogers [id number] Nai Rogers 06/16/2024 2 [facility] PRIOR TO 09/11/2024 (MEDICAID REPLACEMENT - HMO) [id number] Nai Rogers [id number] Nai Rogers 03/09/2024 1 [facility] (MEDICARE REPLACEMENT HMO) Nai Rogers [id number] Nai Rogers 07/15/2024 2 [place] WHEN MEDICARE OR MEDICARE REPLACEMENT PRIMARY) Nai Rogers [id number] Nai Rogers Notes Date Note Type Note Provider Name and Address Organization Details Recorded Time 12/06/2023 text/html ROS as noted in the HPI nearly back to normal , AIMEE Peterson [address] [employer], [place], [address], [employer] 01/05/2024 16:21:37 03/09/2024 text/html ROS as noted in the HPI lesions left cheek by ear ., is spreading AIMEE Peterson [address], [address], [place], [address], [employer] 03/13/2024 10:21:35 04/16/2024 text/html ROS as noted in the HPI Pt is here for a 1 month f/u. Doing fine. Compliant to meds.Pts Legions on her face have healedPt sees a GREENHOUSE ASSISTANT 05/25/24 for her uterus. (Dr. Teri Brickhous)specialized language instructor 2 weeks ago , froze lesions precancerous , left cheek AIMEE Peterson [address], [place], [address], [employer] 04/20/2024 17:43:46 06/04/2024 text/html ROS as noted in the HPI saw urogynecologist Teri Moore., feet swelling , sob at night AIMEE Peterson [address], [place], [address], [employer] 06/14/2024 10:33:18 OBGyn Episode No OBEpisode recorded.
== END 2024-12-25 19:39 | disposition home or self-care (01) ==
PROVIDERS: Student in an Organized Health Care Education/Training Program; Emergency Provider Emergency Medicine; PCP Emergency Medicine
DX: R06.00 Dyspnea, unspecified (principal); E78.5 Hyperlipidemia, unspecified; K21.9 Gastro-esophageal reflux disease without esophagitis; E55.9 Vitamin D deficiency, unspecified
CPT/HCPCS: 36415; 71046; 71275; 80053; 83880; 85025; 93005; 99284; Q9967